=== PATIENT | male | born 1950 | race Caucasian/White ===

== ENCOUNTER 2017-11-24 11:24 | Outpatient (CLI) | payer MEDICARE ==
[2017-11-24 12:45] LABS: Hemoglobin 14.8 g/dL (14.0-18.0); Mean Corpuscular HGB CONC 34.3 g/dL (32.0-36.0); Mean Corpuscular Hemoglobin 32.5 pg (27.0-31.0); Mean Platelet Volume 6.1 fL (7.4-10.4); Platelet Count 316 thou/uL (130-400); RBC Distribution Width 12.3 % (11.5-14.5); Red Blood Cell (RBC) Count 4.54 mill/uL (4.70-6.10); White Blood Cell (WBC) Count 11.2 thou/uL (4.8-10.8)
[2017-11-24 12:47] LABS: INR-International Normal Ratio 1.1; PTT 30.3 SEC (22.9-36.1); Prothrombin Time 13.9 SEC (12.0-14.7)
[2017-11-24 13:00] LABS: Anion Gap 14 mmol/L (10-20); BUN (Urea Nitrogen) 12 mg/dL (8.4-25.7); Calc. Creatinine Clearance 0 mL/min (70-130); Calcium 9.3 mg/dL (7.8-10.44); Carbon Dioxide 21 mmol/L (23-31); Chloride 106 mmol/L (98-107); Estimated GFR-MDRD 90; Glucose 186 mg/dL (80-115); Potassium 4.4 mmol/L (3.5-5.1); Sodium 137 mmol/L (136-145)
== END 2017-11-24 11:25 | disposition home or self-care (01) ==
LOC: LABBT 11:24
PROVIDERS: ATTEND Surgery
DX: Z01.818 Encounter for other preprocedural examination (principal); M48.061 Spinal stenosis, lumbar region without neurogenic claudication; M85.68 Other cyst of bone, other site
CPT/HCPCS: 80048; 85027; 85610; 85730; 93005; 93010

== ENCOUNTER 2017-11-24 12:00 | Inpatient (IN) | payer MEDICARE ==
[2017-11-24 11:45] VITALS: BMI 29.8
[2017-11-28] MEDS ORDERED: CEFAZOLIN/Water 2 GM/20 ML SYRINGE ONE (10:01)
[2017-11-28] MEDS ORDERED: Metoclopramide HCl 10 MG/2 ML VIAL ONE (11:42)
[2017-11-28] MEDS ORDERED: PROPOFOL 200 MG/20 ML VIAL ONE (11:42)
[2017-11-28] MEDS ORDERED: PHENYLEPHRINE-NS 100 MCG/ML 10 ML SYRINGE ONE (11:42)
[2017-11-28] MEDS ORDERED: Glycopyrrolate 0.2 MG/ML 5 ML SYRINGE ONE (11:42)
[2017-11-28] MEDS ORDERED: Dexamethasone 20 MG/5 ML VIAL ONE (11:42)
[2017-11-28] MEDS ORDERED: Ondansetron HCl/PF 4 MG/2 ML Vial ONE (11:42)
[2017-11-28] MEDS ORDERED: Lidocaine 1% PF 5 ML VIAL ONE (11:42)
[2017-11-28] MEDS ORDERED: Sodium Chloride 0.9% 10 ML ONE (13:40)
[2017-11-28] MEDS ORDERED: Bacitracin Zinc Ointment 30 gm TUBE ONE (13:41)
[2017-11-28] MEDS ORDERED: Thrombin 5000 UNITS/5 ML VIAL ONE (13:41)
[2017-11-28] MEDS ORDERED: Fentanyl 100 MCG/2 ML VIAL ONE ×4 (14:23→18:21)
[2017-11-28] MEDS ORDERED: HYDROmorphone 2 MG/ML VIAL SLOW IVP PRN (16:36)
[2017-11-28] MEDS ORDERED: Promethazine HCl 25 MG/ML VIAL SLOW IVP PRN (16:36)
[2017-11-28] MEDS ORDERED: Morphine Sulfate 2 MG/ML SYRINGE SLOW IVP PRN (16:36)
[2017-11-28] MEDS ORDERED: Ondansetron HCl/PF 4 MG/2 ML Vial IVP PRN (16:36)
[2017-11-28] MEDS ORDERED: Meperidine HCl/PF 25 MG/ML VIAL SLOW IVP PRN (16:36)
[2017-11-28] MEDS ORDERED: Promethazine HCl 25 MG/ML VIAL IM PRN ×2 (16:36→17:35)
[2017-11-28] MEDS ORDERED: HYDROmorphone 0.5 MG/0.5 ML SYRINGE ONE (17:06)
[2017-11-28] MEDS ORDERED: Acetaminophen/Codeine 30-300mg Tablet PO PRN (17:35)
[2017-11-28] MEDS ORDERED: Acetaminophen 325 MG TAB PO PRN (17:35)
[2017-11-28] MEDS ORDERED: Mag-Al 1200 mg/1200 mg/30 ML UDCUP PO PRN (17:35)
[2017-11-28] MEDS ORDERED: Bisacodyl 10 MG SUPP PR PRN (17:35)
[2017-11-28] MEDS ORDERED: tiZANidine HCl 4 MG TAB PO PRN (17:35)
[2017-11-28] MEDS ORDERED: Milk Of Magnesia 30 ML UDCUP PO PRN (17:35)
[2017-11-28] MEDS ORDERED: traMADol HCl 50 MG TAB PO PRN (17:35)
[2017-11-28] MEDS ORDERED: Fleet Enema 133 ML BOT PR PRN (17:35)
[2017-11-28] MEDS: HYDROcodone/Acetaminophen 7.5/325 mg Tablet PO PRN (20:37)
[2017-11-28] MEDS: Sodium Chloride 0.9% 1,000 ML IV SCH (20:39)
[2017-11-28] MEDS ORDERED: OLMESARTAN MED PO SCH (21:00)
[2017-11-28] MEDS ORDERED: AMLODIPINE BES PO SCH (21:00)
[2017-11-28] MEDS ORDERED: Atorvastatin Calcium 10 MG TAB PO SCH (21:00)
[2017-11-28] MEDS ORDERED: metFORMIN 500 MG TAB PO SCH (21:00)
[2017-11-28] MEDS ORDERED: Amlodipine 10 MG TAB PO SCH (21:00)
[2017-11-28] MEDS: CEFAZOLIN/Water 2 GM/20 ML SYRINGE SLOW IVP SCH (22:16)
[2017-11-29] MEDS: HYDROcodone/Acetaminophen 7.5/325 mg Tablet PO PRN ×2 (02:00→09:16)
--- NOTE | 2017-11-29 04:45 | OP ---
OR: 11. WOUND TYPE: Type 1 wound. SURGEON: Thomas Carrillo M.D. [employer] PROGRAM MANAGER: Deandre Auguste PA-C. PREPROCEDURE DIAGNOSES: 1. Left L2 radiculopathy with left L2-L3 osteophyte. 2. L4-L5 synovial cyst with low back and leg pain. POSTPROCEDURE DIAGNOSES: 1. Left L2 radiculopathy with left L2-L3 osteophyte. 2. L4-L5 synovial cyst with low back and leg pain. PROCEDURES: 1. Left L2-L3 hemilaminotomy, foraminotomy for decompression of left L2 nerve root. 2. L4-L5 synovial cyst resection. DESCRIPTION OF PROCEDURE: After informed consent was obtained from the patient, the patient brought to OR 11. Proper patient pause and identification was carried out. He was placed in an excellent ge neral endotracheal anesthesia and positioned prone on the OR table. All appropriate points were padd ed. Two small incisions were drawn out over the L2, L3, and L4, L5 segments. This region was steril khalida cleansed, prepared, and draped. Proper patient pause and identification was carried out. Both w ounds were then opened with a combination of sharp, monopolar, and blunt dissection. The L2-L3, left side was exposed left L2-L3 hemilaminotomy was performed with foraminotomy of the left L2 nerve root with excellent decompression of the exiting left L2 nerve root. We then turned our attention to L4- L5 segment and performed an L4-L5 laminectomy and the resection of the L4-L5 synovial cyst. This was removed in its entirety with excellent decompression of the common dural tube in the L5 nerve roots. Copious irrigation occurred throughout. Hemostasis was maximized. Both wounds were then closed in anatomic layers following sprinkle of vancomycin powder. The patient was then emerged from anesthes ia.
[2017-11-29] MEDS: CEFAZOLIN/Water 2 GM/20 ML SYRINGE SLOW IVP SCH (06:32)
[2017-11-29] MEDS: Sodium Chloride 0.9% 1,000 ML IV SCH (06:52)
[2017-11-29 08:00] VITALS: BP 127/66; TEMP 98.4
--- NOTE | 2017-11-29 09:09 | PRG ---
DATE OF SERVICE: 11/29/2017 SUBJECTIVE: Mr. Irving is postoperative day 1 from left-sided L2-L3 hemilaminotomy, foraminotomy, and L4-L5 synovial cyst resection. Doing very well with no leg pain. This morning, he is already mobili zing. He is voiding on his own and his Caraballo catheter has been removed. We will make plans for dism issal.
== END 2017-11-29 11:57 | disposition home or self-care (01) | DRG 520 ==
LOC: SURG A 11-28 08:41 → SJJU 11-28 18:40
PROVIDERS: ADMIT Surgery; ATTEND Surgery
PROC: 01NB0ZZ Release Lumbar Nerve, Open Approach (ICD-10-PCS; principal; 2017-11-28)
PROC: 0SB00ZZ Excision of Lumbar Vertebral Joint, Open Approach (ICD-10-PCS; 2017-11-28)
DX: M48.061 Spinal stenosis, lumbar region without neurogenic claudication (principal); M54.16 Radiculopathy, lumbar region; M71.38 Other bursal cyst, other site; M25.78 Osteophyte, vertebrae; I10 Essential (primary) hypertension; E78.5 Hyperlipidemia, unspecified; F17.210 Nicotine dependence, cigarettes, uncomplicated; Z88.8 Allergy status to other drugs, medicaments and biological substances; Z79.82 Long term (current) use of aspirin; Z79.899 Other long term (current) drug therapy
CPT/HCPCS: 76001; 96374; A4216; J0131; J1100; J1170; J2001; J2405; J2704; J2765; J3010; J3370; J3490

== ENCOUNTER 2020-03-25 08:30 | Outpatient (CLI) | payer MEDICARE ==
[2020-03-25] MEDS ORDERED: Magnevist 469MG/ML 20 ML VIAL ONE (08:57)
[2020-03-25 09:16] LABS: Estimated GFR-MDRD - POC Greater than 90
--- NOTE | 2020-03-25 11:47 | MRI ---
MRI LUMBAR SPINE WITH AND WITHOUT CONTRAST; Date: 03/25/2020 INDICATION: Low back pain. Left leg pain. History of lumbar surgery. Comparison made to MRI lumbar spine dated 07/29/2015. FINDINGS: Fusion changes at L5-S1 again noted, similar to the prior exam. Increasing anterolisthesis at L4-5 cardona s occurred since the prior exam. Degenerative disc changes are again seen. Degenerative disc and end plate changes are prominent at L1-2 and L2-3. These have a similar appearance to the prior study. Ant erior osteophytes are similar to the prior exam. T12-L1: Disc bulge with small central protrusion indenting the thecal sac without significant imping ement on the conus. L1-2: Broad based disc bulge flattens the thecal sac. Facet hypertrophy. There is asymmetric disc pr otrusion paracentrally on the left and flattening the anterior thecal sac. There is disc osteophyte c omplex projecting to the left. This is similar to the prior exam. This does appear to displace the tr aversing left L2 nerve root and appears to impinge on the exiting left L1 nerve root. L2-3: Mild diffuse disc bulge. No significant central canal stenosis. Large osteophyte complex proje cting laterally to the left, similar to the prior exam. This does appear to displace the exiting left L2 nerve root laterally. No central canal stenosis. L3-4; There is a minimal posterolisthesis with broad based disc bulge. Moderate facet arthrosis and hypertrophy. Mild to moderate central canal stenosis. L4-5: Anterior listhesis as noted above which has progressed since the prior exam. Broad based disc bulge. Facet arthrosis and hypertrophy. Mild to moderate central canal stenosis. Bilateral foraminal stenosis more pronounced on the left due to asymmetric disc osteophyte complex and facet hypertrophy. Fusion changes at L5-S1 without significant change. No central canal or foraminal stenosis. IMPRESSION: Degenerative disc changes at L1-2, L2-3, L3-4, and L4-5 as described above. POS: AGW
--- NOTE | 2020-03-25 11:56 | RAD ---
RADIOGRAPH LUMBAR SPINE 5 VIEWS: DATE: 03/25/2020 HISTORY: 69-year-old male with low back pain and left lower extremity pain. TECHNIQUE: Lateral neutral, flexion, and extension views. AP view. FINDINGS: 5 lumbar-type vertebrae. Large bulky bridging osteophytes at L1-2 and L2-3. Minimal, shallow broad de pression of superior endplate of L2 of indeterminate age. Severe bilateral facet DJD at L4-5 causing grade 1 anterolisthesis of L4 on L5. High-grade disc space narrowing at L5-S1. No instability between flexion and extension. IMPRESSION: 1) grade 1 spondylolisthesis at L4-5 due to severe facet osteoarthrosis. 2) no instability. 3) mild compression fracture with very mild loss of height of L2, of indeterminate age.
== END 2020-03-25 08:31 | disposition home or self-care (01) ==
LOC: TBSIIMAG 08:30
PROVIDERS: ATTEND Surgery
DX: M54.5 Low back pain (principal); M79.605 Pain in left leg; M25.552 Pain in left hip; M43.16 Spondylolisthesis, lumbar region; M47.816 Spondylosis without myelopathy or radiculopathy, lumbar region; M51.36 Other intervertebral disc degeneration, lumbar region
CPT/HCPCS: 72100; 72110; 72158; 82565; A9579